=== PATIENT | female | born 1985 | race American Indian/Alaskan Native ===

== ENCOUNTER 2018-11-26 18:34 | Emergency (ER) | payer OTHER ==
--- NOTE | 2018-11-26 18:43 | Emergency Department Report ---
Blank Doc - Documentation Documentation: This is a 33-year-old female that presents with vaginal bleeding. Stated is a bout 10 weeks . This initial assessment/diagnostic orders/clinical plan/treatment(s) is/are subject to change based on patient's health status, clinical progression and re- assessment by fellow clinical providers in the ED. Further treatment and workup at subsequent clinical providers discretion. Patient/guardians urged not to elope from the ED as their condition may be serious if not clinically assessed and managed. Initial orders include: 1- Patient sent to [facility] for further evaluation and treatment 2- labs 3- UA
[2018-11-26 18:47] VITALS: BP 118/71
[2018-11-26 19:54] LABS: Hematocrit 32.1 % (30.3-42.9); Hemoglobin 10.9 gm/dl (10.1-14.3); Mean Corpuscular HGB Conc 34 % (30-34); Mean Corpuscular Volume 78 fl (79-97); Platelet Count 191 K/mm3 (140-440); Red Blood Count 4.11 M/mm3 (3.65-5.03)
[2018-11-26 19:57] LABS: Red Cell Distribution Width 38.3 % (13.2-15.2)
[2018-11-26 20:03] LABS: Bacteria,Urine 1+ /HPF (Negative); Bilirubin,Urine NEG (Negative); Blood,Urine LG (Negative); Color,Urine Yellow (Yellow); Mucus,Urine FEW /HPF; Urobilinogen,Urine < 2.0 mg/dL (<2.0)
[2018-11-26 20:05] LABS: RBC,Urine > 182.0 /HPF (0.0-6.0)
[2018-11-26 21:59] LABS: Anisocytosis 3+; Band Neutrophils # (Manual) 0.2 K/mm3; Basophils % (Manual) 0 % (0.0-1.8); Total Cells Counted 100
[2018-11-26 22:00] LABS: Hypochromasia 2+; Platelet Estimate Consistent w Auto; Poikilocytosis 1+
--- NOTE | 2018-11-26 22:44 | Ultrasound Report ---
PROCEDURE: US OB <= 14 WEEKS FETUS TECHNIQUE: Real-time transabdominal sonography of the uterus, placenta, amniotic fluid, adnexa, and fetus was performed with image documentation. Measurements were obtained to determine age/size. M-mode Doppler was used to document heartbeat. ADDITIONAL GESTATION: None. HISTORY: vaginal bleed COMPARISONS: None . FINDINGS: CRL: 44 mm, which corresponds to a gestational age of: 11 weeks, 0 days. Yolk Sac: Appropriate for gestational age. . Embryonic Cardiac Activity: 176 bpm, regular . Gestational Sac: Size and shape are appropriate for gestational age Amniotic fluid: Appropriate for gestational age. Cervix: Normal. Right Ovary: Normal . Left Ovary: Normal . Estimated delivery date: 06/17/2019 . Uterus and adnexa: Normal. IMPRESSION: Single live intrauterine gestation at approximately : 11 weeks and 0 days. EDC by US . This document is electronically signed by Bradley Siegel MD., November 26 2018 11:42:33 PM ET
--- NOTE | 2018-11-26 23:09 | Emergency Department Report ---
ED Female HPI - General Chief complaint: Vaginal Bleeding Stated complaint: 10 WKS /PAIN Time Seen by Provider: 11/26/18 18:42 Source: patient Mode of arrival: Ambulatory Limitations: No Limitations - History of Present Illness Initial comments: 33-year-old -Maldivian female comes to the emergency room stating she is 10 weeks and complains of vaginal bleeding. Patient reports she is 4 para 2 with a history of a 23 week baby. Patient denies any past medical history only medication she takes is vitamins with iron. [facility] providers [facility]. Patient presents she saturated 1 pad. She denies any abdominal pain no nausea no vomiting no fever no chest pain shortness of breathing no pain with urination. MD Complaint: vaginal bleeding -: This afternoon Severity scale (0 -10): 0 Are you Now?: Yes Last Menstrual Period: 10/18/18 EDC: 07/25/19 Associated Symptoms: vaginal bleeding. denies: abdominal pain, nausea/vomiting, fever/chills, headaches, loss of appetite, dysuria, hematuria, rash, seizure - Related Data Sexually active: Yes : 4 Para: 2 Previous Rx's Medication Instructions Recorded Last Taken Type Nitrofurantoin [place]/M-Cryst 100 mg PO Q12HR #20 capsule 11/26/18 Unknown Rx [Macrobid CAP] Allergies Allergy/AdvReac Type Severity Reaction Status Date / Time No Known Allergies Allergy Unverified 11/26/18 18:38 ED Review of Systems ROS: Stated complaint: 10 WKS /PAIN Other details as noted in HPI Comment: All other systems reviewed and negative ED Past Medical Hx - Past Medical History Previous Medical History?: No - Surgical History Past Surgical History?: No - Social History Smoking Status: Never Smoker Substance Use Type: None - Medications Home Medications: Home Medications Medication Instructions Recorded Confirmed Last Taken Type Nitrofurantoin [place]/M-Cryst 100 mg PO Q12HR #20 capsule 11/26/18 Unknown Rx [Macrobid CAP] ED Physical Exam - General Limitations: No Limitations General appearance: alert, in no apparent distress - Head Head exam: Present: atraumatic, normocephalic - Eye Eye exam: Present: normal appearance - Cardiovascular Cardiovascular Exam: Present: regular rate, normal rhythm. Absent: systolic murmur, diastolic murmur, rubs, gallop - GI/Abdominal GI/Abdominal exam: Present: soft, normal bowel sounds. Absent: distended, tende rness - External exam: Present: normal external exam Speculum exam: Present: vaginal bleeding Bi-manual exam: Present: normal bi-manual exam - Extremities Exam Extremities exam: Present: normal inspection - Back Exam Back exam: Present: normal inspection, full ROM - Neurological Exam Neurological exam: Present: alert, oriented X3 - Skin Skin exam: Present: warm, dry, intact, normal color. Absent: rash ED Course Vital Signs 11/26/18 18:45 Temperature 98 F Pulse Rate 86 Respiratory 18 Rate Blood Pressure 118/71 O2 Sat by Pulse 98 Oximetry ED Medical Decision Making - Lab Data Result diagrams: 11/26/18 19:09 Lab Results 11/26/18 11/26/18 11/26/18 Range/Units 19:09 19:09 19:09 WBC 11.7 H (4.5-11.0) K/mm3 RBC 4.11 (3.65-5.03) M/mm3 Hgb 10.9 (10.1-14.3) gm/dl Hct 32.1 (30.3-42.9) % MCV 78 L (79-97) fl MCH 26 L (28-32) pg MCHC 34 (30-34) % RDW 38.3 H (13.2-15.2) % Plt Count 191 (140-440) K/mm3 Add Manual Diff Complete Total Counted 100 Seg Neuts % (Manual) 78.0 H (40.0-70.0) % Band Neutrophils % 2.0 % Lymphocytes % (Manual) 13.0 L (13.4-35.0) % Reactive Lymphs % (Man) 0 % Monocytes % (Manual) 5.0 (0.0-7.3) % Eosinophils % (Manual) 2.0 (0.0-4.3) % Basophils % (Manual) 0 (0.0-1.8) % Metamyelocytes % 0 % Myelocytes % 0 % Promyelocytes % 0 % Blast Cells % 0 % Nucleated RBC % Not Reportable Seg Neutrophils # Man 9.1 H (1.8-7.7) K/mm3 Band Neutrophils # 0.2 K/mm3 Lymphocytes # (Manual) 1.5 (1.2-5.4) K/mm3 Abs React Lymphs (Man) 0.0 K/mm3 Monocytes # (Manual) 0.6 (0.0-0.8) K/mm3 Eosinophils # (Manual) 0.2 (0.0-0.4) K/mm3 Basophils # (Manual) 0.0 (0.0-0.1) K/mm3 Metamyelocytes # 0.0 K/mm3 Myelocytes # 0.0 K/mm3 Promyelocytes # 0.0 K/mm3 Blast Cells # 0.0 K/mm3 WBC Morphology Not Reportable Hypersegmented Neuts Not Reportable Hyposegmented Neuts Not Reportable Hypogranular Neuts Not Reportable Smudge Cells Not Reportable Toxic Granulation Not Reportable Toxic Vacuolation Not Reportable Dohle Bodies Not Reportable Pelger-Huet Anomaly Not Reportable Marco Rods Not Reportable Platelet Estimate Consistent w auto Clumped Platelets Not Reportable Plt Clumps, EDTA Not Reportable Large Platelets Not Reportable Giant Platelets Not Reportable Platelet Satelliting Not Reportable Plt Morphology Comment Not Reportable RBC Morphology Not Reportable Dimorphic RBCs Not Reportable Polychromasia Not Reportable Hypochromasia 2+ Poikilocytosis 1+ Anisocytosis 3+ Microcytosis 2+ Macrocytosis Not Reportable Spherocytes Not Reportable Pappenheimer Bodies Not Reportable Sickle Cells Not Reportable Target Cells Not Reportable Tear Drop Cells Not Reportable Ovalocytes Not Reportable Helmet Cells Not Reportable Garza-[place] Bodies Not Reportable [place] Rings Not Reportable Jeremiah Cells Not Reportable Bite Cells Not Reportable Crenated Cell Not Reportable Elliptocytes Not Reportable Acanthocytes (Spur) Not Reportable Rouleaux Not Reportable Hemoglobin C Crystals Not Reportable Schistocytes Not Reportable Malaria parasites Not Reportable Marty Bodies Not Reportable Hem Pathologist Commnt No HCG, Quant [id number] H (0-4) mIU/mL Urine Color (Yellow) Urine Turbidity (Clear) Urine pH (5.0-7.0) Ur Specific [place] (1.003-1.030) Urine Protein (Negative) mg/dL Urine Glucose (UA) (Negative) mg/dL Urine Ketones (Negative) mg/dL Urine Blood (Negative) Urine Nitrite (Negative) Urine Bilirubin (Negative) Urine Urobilinogen (<2.0) mg/dL Ur Leukocyte Esterase (Negative) Urine WBC (Auto) (0.0-6.0) /HPF Urine RBC (Auto) (0.0-6.0) /HPF U Epithel Cells (Auto) (0-13.0) /HPF Urine Bacteria (Auto) (Negative) /HPF Urine Mucus /HPF Blood Type O POSITIVE Antibody Screen TNR YAMILETH Antibody Screen Negative 11/26/18 Range/Units 19:37 WBC (4.5-11.0) K/mm3 RBC (3.65-5.03) M/mm3 Hgb (10.1-14.3) gm/dl Hct (30.3-42.9) % MCV (79-97) fl MCH (28-32) pg MCHC (30-34) % RDW (13.2-15.2) % Plt Count (140-440) K/mm3 Add Manual Diff Total Counted Seg Neuts % (Manual) (40.0-70.0) % Band Neutrophils % % Lymphocytes % (Manual) (13.4-35.0) % Reactive Lymphs % (Man) % Monocytes % (Manual) (0.0-7.3) % Eosinophils % (Manual) (0.0-4.3) % Basophils % (Manual) (0.0-1.8) % Metamyelocytes % % Myelocytes % % Promyelocytes % % Blast Cells % % Nucleated RBC % Seg Neutrophils # Man (1.8-7.7) K/mm3 Band Neutrophils # K/mm3 Lymphocytes # (Manual) (1.2-5.4) K/mm3 Abs React Lymphs (Man) K/mm3 Monocytes # (Manual) (0.0-0.8) K/mm3 Eosinophils # (Manual) (0.0-0.4) K/mm3 Basophils # (Manual) (0.0-0.1) K/mm3 Metamyelocytes # K/mm3 Myelocytes # K/mm3 Promyelocytes # K/mm3 Blast Cells # K/mm3 WBC Morphology Hypersegmented Neuts Hyposegmented Neuts Hypogranular Neuts Smudge Cells Toxic Granulation Toxic Vacuolation Dohle Bodies Pelger-Huet Anomaly Marco Rods Platelet Estimate Clumped Platelets Plt Clumps, EDTA Large Platelets Giant Platelets Platelet Satelliting Plt Morphology Comment RBC Morphology Dimorphic RBCs Polychromasia Hypochromasia Poikilocytosis Anisocytosis Microcytosis Macrocytosis Spherocytes Pappenheimer Bodies Sickle Cells Target Cells Tear Drop Cells Ovalocytes Helmet Cells Garza-[place] Bodies [place] Rings Jeremiah Cells Bite Cells Crenated Cell Elliptocytes Acanthocytes (Spur) Rouleaux Hemoglobin C Crystals Schistocytes Malaria parasites Marty Bodies Hem Pathologist Commnt HCG, Quant (0-4) mIU/mL Urine Color Yellow (Yellow) Urine Turbidity Slightly-cloudy (Clear) Urine pH 6.0 (5.0-7.0) Ur Specific [place] 1.024 (1.003-1.030) Urine Protein 30 mg/dl (Negative) mg/dL Urine Glucose (UA) Neg (Negative) mg/dL Urine Ketones Neg (Negative) mg/dL Urine Blood Lg (Negative) Urine Nitrite Pos (Negative) Urine Bilirubin Neg (Negative) Urine Urobilinogen < 2.0 (<2.0) mg/dL Ur Leukocyte Esterase Mod (Negative) Urine WBC (Auto) 45.0 H (0.0-6.0) /HPF Urine RBC (Auto) > 182.0 (0.0-6.0) /HPF U Epithel Cells (Auto) 4.0 (0-13.0) /HPF Urine Bacteria (Auto) 1+ (Negative) /HPF Urine Mucus Few /HPF Blood Type Antibody Screen YAMILETH Antibody Screen - Radiology Data Radiology results: report reviewed Patient: LIZBET CHURCHILL MR#: [id number] : 1985 Acct:[id number] Age/Sex: 33 / F ADM Date: 11/26/18 Loc: ED Attending Dr: Ordering Physician: LIU VILLANUEVA MD Date of Service: 11/26/18 Procedure(s): US OB <= 14 weeks fetus Accession Number(s): [id number] cc: LIU VILLANUEVA MD PROCEDURE: US OB <= 14 WEEKS FETUS TECHNIQUE: Real-time transabdominal sonography of the uterus, placenta, amniotic fluid, adnexa, and fetus was performed with image documentation. Measurements were obtained to determine age/size. M-mode Doppler was used to document heartbeat. ADDITIONAL GESTATION: None. HISTORY: vaginal bleed COMPARISONS: None . FINDINGS: CRL: 44 mm, which corresponds to a gestational age of: 11 weeks, 0 days. Yolk Sac: Appropriate for gestational age. . Embryonic Cardiac Activity: 176 bpm, regular . Gestational Sac: Size and shape are appropriate for gestational age Amniotic fluid: Appropriate for gestational age. Cervix: Normal. Right Ovary: Normal . Left Ovary: Normal . Estimated delivery date: 06/17/2019 . Uterus and adnexa: Normal. IMPRESSION: Single live intrauterine gestation at approximately : 11 weeks and 0 days. EDC by US 06/17/2019 . This document is electronically signed by Marietta Siegel MD., November 26 2018 11:42:33 PM ET Transcribed By: [facility] [place] Dictated By: MARIETTA SIEGEL Electronically Authenticated By: MARIETTA SIEGEL Signed Date/Time: 11/26/184 DD/ 57 TD/TT: 11/26/182158 - Medical Decision Making 33-year-old -Maldivian female comes in for vaginal bleeding pop in 10 weeks . Ultrasound shows a single live intrauterine gestation is approximately 11 weeks with the ED U of 06/17/2019. Patient's urine shows she has a urinary tract infection with positive nitrates. Patient will be treated for a urinary tract infection and to follow up with her OB doctor in the next 2- 3 days. Critical care attestation.: If time is entered above; I have spent that time in minutes in the direct care of this critically ill patient, excluding procedure time. ED Disposition Clinical Impression: Vaginal bleeding before 22 weeks gestation Urinary tract infection Qualifiers: Hematuria presence: with hematuria Disposition: DC-01 TO HOME OR SELFCARE Is pt being admited?: No Does the pt Need Aspirin: No Condition: Stable Instructions: Threatened Miscarriage (ED), Urinary Tract Infection in Women (ED) Additional Instructions: Complete antibiotics as prescribed. Follow up with her [employer] provider in the next 2-3 days. Prescriptions: Nitrofurantoin [place]/M-Cryst [Macrobid CAP] 100 mg PO Q12HR #20 capsule Referrals: ABIMBOLA LAZO MD [Primary Care Provider] - 3-5 Days KATALINA GANT CNM [Advanced Practice Nurse] - 3-5 Days Forms: Accompanied Note, Work/School Release Form(ED)
== END 2018-11-26 23:30 | disposition home or self-care (01) ==
LOC: ED 18:34
DX: O46.91 Antepartum hemorrhage, unspecified, first trimester (principal); O23.41 Unspecified infection of urinary tract in pregnancy, first trimester; Z3A.10 10 weeks gestation of pregnancy
CPT/HCPCS: 36415; 76801; 81001; 84702; 85007; 85025; 86850; 86900; 86901; 87086; 99284

== ENCOUNTER 2018-12-17 12:23 | Emergency (ER) | payer OTHER ==
[2018-12-17 13:01] VITALS: BP 124/67
--- NOTE | 2018-12-17 13:07 | Event Note ---
ED Screening Note Date of service: 12/17/18 Time: 13:05 ED Screening Note: 33 y/o 14 wks preg had 2 vaginal clots. Denies any pain. This initial assessment/diagnostic orders/clinical plan/treatment(s) is/are subject to change based on patients health status, clinical progression and re-assessment by fellow clinical providers in the ED. Further treatment and workup at subsequent clinical providers discretion. Patient/guardian urged not to elope from the ED as their condition may be serious if not clinically assessed and managed. Initial orders include:
[2018-12-17] MEDS ORDERED: ROCEPHIN/NS 1 GM/50 ML 1 GM/50 ML BAG IV ONE (15:19)
[2018-12-17] MEDS ORDERED: NACL 0.9% 1000 ML 1,000 ML IV ONE (15:19)
--- NOTE | 2018-12-17 15:41 | Emergency Department Report ---
HPI - General Chief Complaint: Vaginal Bleeding Time Seen by Provider: 12/17/18 15:11 - HPI HPI: pt 14 weeks and comes in after passing a blood clot his AM. no bleeding or pain on arrival to ER. no unusual vag dc. ambulatory. non toxic. taking po. ED Past Medical Hx - Past Medical History Previous Medical History?: No - Surgical History Past Surgical History?: No - Social History Smoking Status: Never Smoker Substance Use Type: None - Medications Home Medications: Home Medications Medication Instructions Recorded Confirmed Last Taken Type Nitrofurantoin [place]/M-Cryst 100 mg PO Q12HR #20 capsule 11/26/18 Unknown Rx [Macrobid CAP] ED Review of Systems ROS: Stated complaint: PASS BLOOD CLOT Other details as noted in HPI Comment: All other systems reviewed and negative Physical Exam - Physical Exam Vital Signs: Vital Signs 12/17/18 12:59 Temperature 98 F Pulse Rate 99 H Respiratory 18 Rate Blood Pressure 124/67 O2 Sat by Pulse 99 Oximetry Physical Exam: WDWN patient in NAD VS per RN flow sheet Alert and oriented to person, place and time. S1-S2. No S3 or S4. No systolic or diastolic murmur. No JVD. No pitting edema. Lungs clear to auscultation bilaterally anteriorly and posteriorly. Abdomen soft nontender bowel sounds x4 Moves all extremities well. Mood and affect appropriate. ED Course Vital Signs 12/17/18 12:59 Temperature 98 F Pulse Rate 99 H Respiratory 18 Rate Blood Pressure 124/67 O2 Sat by Pulse 99 Oximetry ED Medical Decision Making - Radiology Data Radiology results: report reviewed, image reviewed - Medical Decision Making Vital Signs 12/17/18 12:59 Temperature 98 F Pulse Rate 99 H Respiratory 18 Rate Blood Pressure 124/67 O2 Sat by Pulse 99 Oximetry Lab Results 12/17/18 Range/Units 13:18 HCG, Quant [id number] H (0-4) mIU/mL repeat HCG ultrasound noted dc home on pelvic rest with obgyn follow up. Critical care attestation.: If time is entered above; I have spent that time in minutes in the direct care of this critically ill patient, excluding procedure time. ED Disposition Clinical Impression: , Uterine fibroid Disposition: DC-01 TO HOME OR SELFCARE Is pt being admited?: No Does the pt Need Aspirin: No Condition: Stable Instructions: (ED) Additional Instructions: tylenol for pain follow up with obgyn Referrals: MOLLY GRAF MD [Staff Physician] - 3-5 Days Time of Disposition: 17:48
--- NOTE | 2018-12-17 17:18 | Ultrasound Report ---
PROCEDURE: US OB <= 14 WEEKS FETUS TECHNIQUE: Grayscale and color Doppler ultrasound imaging of the pelvis was performed transabdominal ly and transvaginally. M-mode ultrasound evaluation of the fetus was performed to assess for ca rdiac activity. HISTORY: vag bleed COMPARISONS: OB ultrasound from 11/26/2018. FINDINGS: Uterus: A single live intrauterine fetus is present. [place]-rump length is 6.8 cm. Biparietal diameter is 2.1 cm. Femur length is 1.0 cm. Combined ultrasound estimated gestational age is 13 weeks and 1 day with MATT of 06/23/2019. car diac activity was detected at 157 bpm. The amniotic fluid volume is subjectively normal. body/l imb movements were seen. The uterus measures 15.8 x 10.6 x 11.5 cm. A single uterine fibroid is seen measuring 3.8 x 4.2 x 3.7 cm. Ovaries: The ovaries are normal in echogenicity. A small left corpus luteal cyst is seen. The left ov geovanna measures 4.5 x 2.4 x 3.1 cm. The right ovary measures 3.6 x 1.8 x 3.0 cm. Normal color flow is se en to the ovaries. Free fluid: There is a minimal amount of free fluid in the pelvis. IMPRESSION: 1. Single live intrauterine fetus measuring at 13 weeks and 1 day gestational age with an MATT of 05/27. 2. Uterine fibroid. This document is electronically signed by Jennifer Ferguson., December 17 2018 05:16:33 PM ET
== END 2018-12-17 18:20 | disposition home or self-care (01) ==
LOC: ED 12:23
DX: O34.12 Maternal care for benign tumor of corpus uteri, second trimester (principal); Z3A.14 14 weeks gestation of pregnancy; Z79.899 Other long term (current) drug therapy
CPT/HCPCS: 36415; 76801; 76817; 84702; 96365; 96366; 99284; J0696; J7030

== ENCOUNTER 2019-03-06 16:09 | Outpatient (CLI) | payer OTHER ==
[2019-03-06 16:47] VITALS: BP 102/56
[2019-03-06] MEDS ORDERED: CELESTONE SOLUSPAN IM ONE ×2 (17:23→18:20)
== END 2019-03-06 17:45 | disposition home or self-care (01) ==
LOC: TRG 16:09
PROVIDERS: ATTEND Obstetrics & Gynecology
DX: O47.02 False labor before 37 completed weeks of gestation, second trimester (principal); Z3A.24 24 weeks gestation of pregnancy
CPT/HCPCS: 59025; 96372; J0702

== ENCOUNTER 2019-03-07 17:39 | Outpatient (CLI) | payer OTHER ==
[2019-03-07 18:45] VITALS: BP 118/69
[2019-03-07] MEDS ORDERED: CELESTONE SOLUSPAN IM ONE (18:57)
[2019-03-07] MEDS ORDERED: LACTATED RINGERS 500 ML IV ONE (19:35)
== END 2019-03-07 19:33 | disposition home or self-care (01) ==
LOC: TRG 17:39
PROVIDERS: ATTEND Obstetrics & Gynecology
DX: O47.02 False labor before 37 completed weeks of gestation, second trimester (principal); Z3A.24 24 weeks gestation of pregnancy
CPT/HCPCS: 96372; J0702

== ENCOUNTER 2019-05-27 09:06 | Inpatient (IN) | payer OTHER ==
--- NOTE | 2019-05-27 09:42 | History and Physical Report ---
<LOUISE GOETZ - Last Filed: 05/27/19 09:43> History of Present Illness History of present illness: EDC Confirmation: 06/24/2019 Gestational Age: 5 2/7 weeks Past History : 4 Term Births: 1 Premature Births: 1 Living Children: 2 Para: 2 Mult. Births: 0 Prev : 0 Prev. attempt? 0 Aborta: 1 Elect. Ab: 0 Spont. Ab: 1 Ectopics: 0 # 1 Delivery date: 11/08/2004 Weeks Gestation: 38 Delivery type: Anesthesia type: epidural Delivery location: [facility] Infant Sex: Female weight: 6#9 # 2 Delivery date: 06/08/2005 Weeks Gestation: 23 labor: yes Delivery type: Delivery location: [facility] Sex: Male weight: 1#4 # 3 Delivery date: 01/2009 Weeks Gestation: 1st trimeser Delivery type: SAB Comments: D&C Risk Factors: Smoked Tobacco Use: Former smoker Cigarettes: Yes Year quit: 2018 Years Since Last Quit: 0 Smokeless Tobacco Use: Never Counseled to quit/cut down: yes Passive smoke exposure: no Drug use: no HIV high-risk behavior: no Alcohol use: no Exercise: yes Times per week: 1 Type of Exercise: walking Seatbelt use: preg-nurses' association counselor % Dietary Counseling: pn yes Past Medical History: Negative Past Medical History Past Surgical History: D&C Past Medical History Surgery (Non-take off worker): D&C Abnormal PAP: negative CHRISTO Exposure: negative Infertility: negative Uterine Anomaly: negative Uterine Surgery (not C/S): negative Other Gynecologic Problems: negative Family Hx: sister fibroids mother htn mgm diabetes Social Hx: single. lives with FOC and children and mother student at [employer] denies ETHO, drugs, tobacco use at beginning of , quit now Infection History Hx of STD: none HIV Risk Eval: no Hepatitis B Risk Eval: low risk Personal hx. of genital herpes: no Partner hx. of genital herpes: no Rash, Viral, or Febrile illness since last LMP? no Varicella/Chicken Pox Status: Previous Disease TB Risk: no Genetic History Congenital Heart Defect: Mom: no Dad: no Keila Disease: Mom: no Dad: no Thalassemia Mom: no Dad: no Neural Tube Defect Mom: no Dad: no Down's Syndrome Mom: no Dad: no Jackson-Sachs Mom: no Dad: no Sickle Cell Disease/Trait Mom: no Dad: no Hemophilia Mom: no Dad: no Muscular Dystrophy Mom: no Dad: no Cystic Fibrosis Mom: no Dad: no Rose Chorea Mom: no Dad: no Mental Retardation Mom: no Dad: no Fragile X Mom: no Dad: no Other Genetic/Chromosomal Disorder Mom: no Dad: no Child w/other defect Mom: no Dad: no Enviromental Exposures Enviromental Exposures Reviewed Xray Exposure: no Medication, drug, or alcohol use since LMP: no Chemical/Other Exposure: no Exposure to Cat Liter: no Hx of Parvovirus (Fifth Disease): no Occupational Exposure to Children: none Active Medications (reviewed today): None Current Allergies: No known allergies Past History - Obstetrical History Expected Date of Delivery: 06/24/19 Actual Gestation: 36 Week(s) 0 Day(s) : 4 Medications and Allergies Allergies Allergy/AdvReac Type Severity Reaction Status Date / Time No Known Allergies Allergy Verified 12/17/18 12:26 Home Medications Medication Instructions Recorded Confirmed Last Taken Type Ferrous Sulfate 325 mg PO BID 05/27/19 05/27/19 05/26/19 History - Vital Signs Vital signs: Vital Signs Temp Pulse Resp BP 98.2 F 81 14 125/73 05/27/19 09:25 05/27/19 09:25 05/27/19 09:25 05/27/19 09:25 Temp Pulse Resp BP Pulse Ox 98.2 F 81 14 125/73 05/27/19 09:25 05/27/19 09:25 05/27/19 09:25 05/27/19 09:25 Results All other labs normal. <QUINTON PEREZ - Last Filed: 05/27/19 11:52> History of Present Illness Date of examination: 05/27/19 (Pt in late pre term labor) Chief complaint: SROM at 0700 for clear fluid. 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 Family/Genetic History: none Social history: no significant social history - Obstetrical History Para: 2 Hx # Term Pregnancies: 1 Number of Pregnancies: 1 Spontaneous Abortions: 1 Induced : 0 Number of Living Children: 2 Medications and Allergies Active Meds: Active Medications Ephedrine Sulfate (Ephedrine Sulfate) 10 mg IV Q2M PRN PRN Reason: Hypotension Fentanyl (Sublimaze) 100 mcg IV Q2H PRN PRN Reason: Labor Pain Oxytocin/Sodium Chloride (Pitocin/Ns 20 Unit/1000ml Drip) 20 units in 1,000 mls @ 125 mls/hr IV DIRECT [place] Oxytocin/Sodium Chloride (Pitocin/Ns 30 Unit/500ml) 30 units in 500 mls @ 4 mls/hr IV Q30MIN [place]; Protocol Lactated Ringer's (Lactated Ringers) 1,000 mls @ 125 mls/hr IV DIRECT [place] Metronidazole 1,000 mg/ (Miscellaneous Information) 200 mls @ 200 mls/hr IV Q8H [place]; Protocol Last Admin: 05/27/19 10:54 Dose: 200 mls/hr Documented by: Lidocaine (Xylocaine 2%) 20 ml INFILTRATI ONCE NR Stop: 05/28/19 10:29 Mineral Oil (Mineral Oil) 30 ml PO QHS PRN PRN Reason: Constipation Ondansetron HCl (Zofran) 4 mg IV Q8H PRN PRN Reason: Nausea And Vomiting Terbutaline Sulfate (Brethine) 0.25 mg SUB-Q ONCE PRN PRN Reason: Hyperstimulation/Hypertonicity Review of Systems All systems: negative Breasts: normal - Vital Signs Vital signs: Vital Signs Temp Pulse Resp BP 98.2 F 81 14 125/73 05/27/19 09:25 05/27/19 09:25 05/27/19 09:25 05/27/19 09:25 Temp Pulse Resp BP Pulse Ox 97.9 F 83 14 113/70 05/27/19 11:05 05/27/19 10:40 05/27/19 09:25 05/27/19 10:40 - Physical Exam Breasts: Positive: deferred Cardiovascular: Regular rate Lungs: Positive: Normal air movement Abdomen: Positive: normal appearance, soft, normal bowel sounds. Negative: distention, tenderness Vulva: both: normal Vagina: Positive: normal moisture. Negative: discharge Cervix: Negative: lesion, discharge Uterus: Positive: normal size, normal contour Adnexa: both: normal Anus/Rectum: Positive: normal perianal skin, heme negative. Negative: rectal mass, hemorrhoids Extremities: Positive: normal Deep Tendon Reflex Grade: Normal +2 - Obstetrical FHR: category 1 Cervical Dilatation: 4 (Per triage nurse, clear fluid noted from vagina) Cervical Effacement Percentage: 50 station: -2 Uterine Contraction Pattern: Regular Uterine Tone Measurement Phase: Resting Uterine Contraction Intensity: Moderate Results Result Diagrams: 05/27/19 10:15 Abnormal lab results 05/27/19 Range/Units 10:15 WBC 12.4 H (4.5-11.0) K/mm3 RDW 15.5 H (13.2-15.2) % All other labs normal. GBS Negative HBsAg Screen Negative Negative *1 RPR Non Reactive Non Reactive *2 Rubella Antibodies, IgG 4.23 index Immune >0.99 *3 Non-immune <0.90 Equivocal 0.90 - 0.99 Immune >0.99 ABO Grouping O *4 Rh Factor Positive *5 Please note: Prior records for this patient's ABO / Rh type are not available for additional verification. Antibody Screen Negative Negative *6 WBC 10.4 x10E3/uL 3.4-10.8 *7 RBC 4.63 x10E6/uL 3.77-5.28 *8 Microcytes present. Hypochromasia present. Elliptocytes present. Jeremiah cells present. Anisocytosis present. Hemoglobin [L] 9.5 g/dL 11.1-15.9 *9 Hematocrit [L] 32.8 % 34.0-46.6 *10 MCV [L] 71 fL 79-97 *11 MCH [L] 20.5 pg 26.6-33.0 *12 MCHC [L] 29.0 g/dL 31.5-35.7 *13 RDW <No Reported Value> *14 Platelets 162 x10E3/uL 150-379 *15 Effective November 12, 2018 the reference interval for Platelets will be changing to: 0 - 7 d 140 - 396 x10E3/uL 8 - 30 d 139 - 531 x10E3/uL 31 d - 999 yrs 150 - 450 x10E3/uL Neutrophils 72 % Not Estab. *16 Lymphs 20 % Not Estab. *17 Monocytes 6 % Not Estab. *18 Eos 2 % Not Estab. *19 Basos 0 % Not Estab. *20 ! Immature Cells <No Reported Value> *21 Neutrophils (Absolute) [H] 7.5 x10E3/uL 1.4-7.0 *22 Lymphs (Absolute) 2.0 x10E3/uL 0.7-3.1 *23 Monocytes(Absolute) 0.7 x10E3/uL 0.1-0.9 *24 Eos (Absolute) 0.2 x10E3/uL 0.0-0.4 *25 Baso (Absolute) 0.0 x10E3/uL 0.0-0.2 *26 ! Immature Granulocytes 0 % Not Estab. *27 ! Immature Grans (Abs) 0.0 x10E3/uL 0.0-0.1 *28 ! NRBC <No Reported Value> *29 Hematology Comments: Note: *30 Verified by microscopic examination. Tests: (2) HCV Ab w/Rflx to Verification ([id number]) ! HCV Ab <0.1 s/co ratio 0.0-0.9 *31 Tests: (3) Comment: ([id number]) ! Comment: SPR[facility] *32 Non reactive HCV antibody screen is consistent with no HCV infection, unless recent infection is suspected or other evidence exists to indicate HCV infection. Tests: (4) Panel [id number] ([id number]) HIV Screen 4th Generation wRfx Non Reactive Non Reactive *33 Tests: (5) Urine Culture, Routine ([id number]) Urine Culture, Routine Final report *34 Assessment and Plan 34 y.o. at 36 weeks with PPROM and labor. Expectant management for labor. Trich positive, Flagyl infusing, GBS negative. All orders in EMR. Dr. Looney aware. - Patient Problems (1) Trichomonal vaginitis during in third trimester Onset Date: ~05/27/19 Current Visit: Yes Status: Acute Plan to address problem: Pt continue to positive for trich, will transfuse Flagyl 1 gm before pitocin started. Pt is aware as is SO.
[2019-05-27] MEDS ORDERED: LACTATED RINGERS 1,000 ML IV SCH (10:00)
[2019-05-27] MEDS ORDERED: OXYTOCIN 20 UNIT/1000ML DRIP 20 UNITS/1,000 ML BAG IV SCH (10:00)
[2019-05-27] MEDS ORDERED: OXYTOCIN DRIP 30 UNITS/500 ML BAG IV SCH (10:00)
[2019-05-27] MEDS ORDERED: LIDOCAINE (2%) 20 MG/1 ML VIAL 20 ML MDV INFILTRATI NR (10:30)
[2019-05-27] MEDS ORDERED: ONDANSETRON 4 MG/2 ML INJ IV PRN (10:30)
[2019-05-27] MEDS ORDERED: ePHEDrine SULFATE 50 MG/1 ML INJ IV PRN (10:30)
[2019-05-27] MEDS ORDERED: fentaNYL 100 MCG/2 ML INJ IV PRN (10:30)
[2019-05-27] MEDS ORDERED: TERBUTALINE 1 MG/1 ML INJ SUB-Q PRN (10:30)
[2019-05-27 10:44] LABS: Hematocrit 38.8 % (30.3-42.9); Hemoglobin 12.7 gm/dl (10.1-14.3); Mean Corpuscular HGB Conc 33 % (30-34); Mean Corpuscular Volume 89 fl (79-97); Platelet Count 149 K/mm3 (140-440); Red Blood Count 4.36 M/mm3 (3.65-5.03); Red Cell Distribution Width 15.5 % (13.2-15.2)
[2019-05-27] MEDS ORDERED: metroNIDAZOLE/NS 1000 MG-200ML 1,000 MG in EMPTY BAG 0 ML IV SCH (11:00)
--- NOTE | 2019-05-27 11:58 | Progress Note ---
Assessment and Plan Flagyl infused. Pt tolerating labor well. Does not want epidural for labor. Pitocin started due to no cervical change. Anticipating delivery. - Patient Problems (1) Trichomonal vaginitis during in third trimester Onset Date: ~05/27/19 Current Visit: Yes Status: Acute Plan to address problem: Flagyl infused Subjective - Subjective Date of service: 05/27/19 (Pt tolerating labor well. Does not want epidural for labor pain.) Principal diagnosis: @ 36 wks, PPROM and PTL, + trich Patient reports: movement normal, contractions Objective - Vital Signs Vital Signs: Vital Signs - 12hr 05/27/19 05/27/19 05/27/19 09:25 10:40 11:05 Temperature 98.2 F 97.9 F Pulse Rate 81 83 Respiratory 14 Rate Blood Pressure 113/70 Blood Pressure 125/73 [Left] - Exam Abdomen: Present: normal appearance, soft. Absent: distention, tenderness Uterus: Present: normal FHR: auscultation normal Uterine Contraction Monitor Mode: External Cervical Dilatation: 6 Cervical Effacement Percentage: 80 station: -1 Uterine Contraction Pattern: Regular Uterine Tone Measurement Phase: Resting Uterine Contraction Intensity: Moderate Extremities: normal Deep Tendon Reflex Grade: Normal +2 - Labs Labs: Abnormal Labs 05/27/19 10:15 WBC 12.4 H RDW 15.5 H Laboratory Results - last 24 hr 05/27/19 05/27/19 05/27/19 10:15 10:15 10:15 WBC 12.4 H RBC 4.36 Hgb 12.7 Hct 38.8 MCV 89 MCH 29 MCHC 33 RDW 15.5 H Plt Count 149 Syphilis IgG Antibody Non-reactive Blood Type O POSITIVE Antibody Screen Negative
--- NOTE | 2019-05-27 12:55 | Progress Note ---
Assessment and Plan S: Pt states that she is doing well. O: Breathing well with ctxs. VE: 680/-1 FHR tracing: [place] 1 A/P: 34 y.o. 36 wks, PPROM, PTL Continue with Pitocin Anticipate - Patient Problems (1) Trichomonal vaginitis during in third trimester Onset Date: ~05/27/19 Current Visit: Yes Status: Acute Subjective - Subjective Date of service: 05/27/19 (Pt tolerating labor well) Principal diagnosis: @ 36 wks, PPROM and PTL, + trich Patient reports: movement normal, contractions Objective - Vital Signs Vital Signs: Vital Signs - 12hr 05/27/19 05/27/19 05/27/19 09:25 10:40 11:05 Temperature 98.2 F 97.9 F Pulse Rate 81 83 Respiratory 14 Rate Blood Pressure 113/70 Blood Pressure 125/73 [Left] - Exam Breasts: deferred Cardiovascular: Regular rate Lungs: Normal air movement Abdomen: Present: normal appearance, soft. Absent: distention, tenderness FHR: category 1 Uterine Contraction Monitor Mode: External Cervical Dilatation: 6 Cervical Effacement Percentage: 80 station: -1 Uterine Contraction Pattern: Regular Uterine Tone Measurement Phase: Resting Uterine Contraction Intensity: Moderate Extremities: normal Deep Tendon Reflex Grade: Normal +2 - Labs Labs: Abnormal Labs 05/27/19 10:15 WBC 12.4 H RDW 15.5 H Laboratory Results - last 24 hr 05/27/19 05/27/19 05/27/19 10:15 10:15 10:15 WBC 12.4 H RBC 4.36 Hgb 12.7 Hct 38.8 MCV 89 MCH 29 MCHC 33 RDW 15.5 H Plt Count 149 Syphilis IgG Antibody Non-reactive Blood Type O POSITIVE Antibody Screen Negative
[2019-05-27] MEDS ORDERED: OXYTOCIN 10 UNIT/1 ML INJ ONE (13:17)
[2019-05-27] MEDS ORDERED: ACETAMINOPHEN 325 MG TAB PO PRN (13:32)
[2019-05-27] MEDS ORDERED: diphenhydrAMINE 25 MG CAP PO PRN (13:32)
[2019-05-27] MEDS ORDERED: LANOLIN/ZINC/DIMETHICONE (LANSINOH) 7 GM TP PRN (13:32)
[2019-05-27] MEDS ORDERED: MAGNESIUM HYDROXIDE (MOM) ORAL LIQD UDC PO PRN (13:32)
[2019-05-27] MEDS ORDERED: WITCH HAZEL/ GLYCERIN PAD TP PRN (13:32)
[2019-05-27] MEDS ORDERED: PROMETHAZINE 25 MG TAB PO PRN (13:32)
--- NOTE | 2019-05-27 13:47 | Procedure Note ---
OB Delivery Note - Delivery Date of Delivery: 05/27/19 Decal Maker: QUINTON PEREZ (Nuzhat Chisholm CNM) Estimated blood loss: 300cc - Vaginal Delivery presentation: vertex Delivery position: OA Intrapartum events: labor-<37 weeks, other(please specify) (+ Trich. Txed prior to delivery) Delivery induction: none Delivery augmentation: pitocin Delivery monitor: external FHT, external uterine Route of delivery: Delivery placenta: spontaneous Delivery cord: 3 umbilical vessels Episiotomy: none Delivery laceration: none Anesthesia: none Delivery comments: of female infant over intact perineum with no complications. Baby placed skin to skin on mom's abdomen. Delayed cord clamping. Cord blood obtained. Placenta and membrane delivered complete and intact, 3 vessel cord. Pitocin IM. IV access not available. Apgars 8,9. Infant weight 7ign4otf. EBL 300ml. Placenta sent to pathology. Mom baby remain LDR stable. - A at 1 minute: 8 at 5 minutes: 9 Infant Gender: Female (5-9)
[2019-05-27] MEDS ORDERED: IBUPROFEN 600 MG TAB PO SCH (14:00)
[2019-05-27] MEDS ORDERED: OXYTOCIN 10 UNIT/1 ML INJ IM ONE (14:29)
[2019-05-27] MEDS: IBUPROFEN 800 MG TAB PO SCH (21:26)
[2019-05-27] MEDS: FERROUS SULFATE 325 MG TAB PO SCH (21:27)
[2019-05-27] MEDS: DOCUSATE SODIUM 100 MG CAP PO SCH (21:27)
[2019-05-27] MEDS ORDERED: MINERAL OIL 30 ML ORAL LIQD PO PRN (22:00)
[2019-05-28 01:10] LABS: Hematocrit 35.7 % (30.3-42.9); Hemoglobin 11.9 gm/dl (10.1-14.3)
[2019-05-28] MEDS: IBUPROFEN 800 MG TAB PO SCH ×2 (04:57→19:50)
--- NOTE | 2019-05-28 08:03 | Discharge Summary ---
Providers - Providers Date of Admission: 05/27/19 09:07 Date of discharge: 05/28/19 Attending physician: EVANS STOKES Primary care physician: EVANS STOKES Hospitalization Reason for admission: labor Condition: Good Pertinent studies: post delivery H&H 11.9/35.7 Procedures: Hospital course: uncomplicated and course Disposition: DC-01 TO HOME OR SELFCARE - Discharge Diagnoses (1) Spontaneous vaginal delivery Status: Acute Core Measure Documentation - Palliative Care Palliative Care/ Comfort Measures: Not Applicable - Core Measures Any of the following diagnoses?: none Exam - Constitutional Vitals: Temp Pulse Resp BP Pulse Ox 98.4 F 71 18 120/65 100 05/28/19 01:03 05/28/19 01:03 05/28/19 01:03 05/28/19 01:03 05/28/19 01:03 General appearance: Present: no acute distress, well-nourished - EENT Eyes: Present: PERRL ENT: hearing intact, clear oral mucosa - Neck Neck: Present: supple, normal ROM - Respiratory Respiratory effort: normal Respiratory: bilateral: CTA - Cardiovascular Rhythm: regular - Extremities Extremities: No edema - Abdominal General gastrointestinal: Present: soft, non-tender, normal bowel sounds - Integumentary Integumentary: Present: clear, warm, dry - Musculoskeletal Musculoskeletal: gait normal, strength equal bilaterally - Psychiatric Psychiatric: appropriate mood/affect, intact judgment & insight - Neurologic Neurologic: CNII-XII intact, moves all extremities - Additional findings Additional findings: , lochia scant, fundus firm, unsure on contraception Plan Activity: no restrictions Diet: regular Follow up with: EVANS STOKES MD [Primary Care Provider] - 7 Days (Congratulations! Please call [phone] to schedule your visit in 4 weeks. Call for any questions or concerns. )
[2019-05-28] MEDS: FERROUS SULFATE 325 MG TAB PO SCH ×2 (09:14→22:08)
[2019-05-28] MEDS: DOCUSATE SODIUM 100 MG CAP PO SCH ×2 (09:14→22:07)
[2019-05-28] MEDS ORDERED: TETANUS,DIPH,PERTUSS(ACELL) VACCINE 0.5 ML SYRINGE IM ONE (12:00)
[2019-05-28] MEDS ORDERED: MEASLES, MUMPS & RUBELLA 12,500 UNIT/0.5 ML VACCINE SUB-Q ONE (14:00)
[2019-05-29] MEDS: IBUPROFEN 800 MG TAB PO SCH ×2 (06:36→17:59)
[2019-05-29] MEDS: DOCUSATE SODIUM 100 MG CAP PO SCH (12:21)
[2019-05-29] MEDS: FERROUS SULFATE 325 MG TAB PO SCH (12:21)
[2019-05-29 14:29] VITALS: BP 120/70
== END 2019-05-29 18:44 | disposition home or self-care (01) | DRG 774 ==
LOC: TRG 09:06 → LD 09:06 → TRG 09:07 → OB 16:42
PROVIDERS: ADMIT Obstetrics & Gynecology; ATTEND Obstetrics & Gynecology
PROC: 10E0XZZ Delivery of Products of Conception, External Approach (ICD-10-PCS; principal; 2019-05-27)
PROC: 3E0234Z Introduction of Serum, Toxoid and Vaccine into Muscle, Percutaneous Approach (ICD-10-PCS; 2019-05-28)
PROC: 3E0134Z Introduction of Serum, Toxoid and Vaccine into Subcutaneous Tissue, Percutaneous Approach (ICD-10-PCS; 2019-05-28)
DX: O60.14X0 Preterm labor third trimester with preterm delivery third trimester, not applicable or unspecified (principal); O98.32 Other infections with a predominantly sexual mode of transmission complicating childbirth; A59.01 Trichomonal vulvovaginitis; Z37.0 Single live birth; Z3A.36 36 weeks gestation of pregnancy; Z23 Encounter for immunization; Z82.49 Family history of ischemic heart disease and other diseases of the circulatory system; Z83.3 Family history of diabetes mellitus
CPT/HCPCS: 36415; 85014; 85018; 85027; 86592; 86850; 86900; 86901; 88307; G0378; A6250; J2590; J7120